=== PATIENT | male | born 1960 | race Caucasian/White ===

== ENCOUNTER 2022-04-12 11:00 | Outpatient (CLI) | payer BC, SELFPAY ==
--- NOTE | 2022-04-19 12:34 | WPDHOLTEREM ---
Holter/Event Monitor Holter/Event Monitor Date of procedure: 04/12/22 Holter/Event Procedure: 48 Hr Holter Monitor Indications: Tachycardia Conclusion: 1. 48 hour holter monitor on 04/12/22. 2. Predominant rhythm is sinus rhythm. HR range 47-150 bpm; average HR 60 bpm. 3. There are 51 premature supraventricular complexes and 1 supraventricular couplet. There are 4 episodes of atrial fibrillation with burden of 0.2%; HR range 85-133 bpm. 4. There are 5 premature ventricular complexes. No ventricular tachycardia. 5. No sinoatrial or atrioventricular blocks. No significant pauses greater than 2 seconds. 6. No symptoms available for correlation.
== END 2022-04-12 11:01 | disposition home or self-care (01) ==
PROVIDERS: PCP Family Medicine; Visit Provider Family Medicine
DX: R00.0 Tachycardia, unspecified (principal)
CPT/HCPCS: 93225; 93226

== ENCOUNTER 2024-11-24 07:47 | Outpatient (CLI) | payer MEDICARE, BC, SELFPAY ==
--- NOTE | 2024-12-16 10:43 | P.SLEEP_ITS ---
Sleep Study Ordering Provider: Laurie Byrnes DO <Debbie Thomas MD - Last Filed: 01/06/25 10:11> Interpreting Physician: Debbie Thomas MD <Debbie Thomas MD - Last Filed: 01/06/25 10:11> Height: 1.8 m <Debbie Thomas MD - Last Filed: 01/06/25 10:11> Weight: 104.326 kg <Debbie Thomas MD - Last Filed: 01/06/25 10:11> Body Mass Index: 32.1 <Lorenza Lucia DO - Last Filed: 12/16/24 17:06> 32.1 <Debbie Thomas MD - Last Filed: 01/06/25 10:11> Neck Circumference (inches): 16 <Debbie Thomas MD - Last Filed: 01/06/25 10:11> [place]: 0 <Debbie Thomas MD - Last Filed: 01/06/25 10:11> PMF Past Medical History Medical History: Medical History Hepatitis C antibody test negative (11/07/19) <Lorenza Lucia DO - Last Filed: 12/16/24 17:06> Surgical History Surgical History: Surgical History H/O removal of cyst (~1980) History of tonsillectomy (~1963) H/O colonoscopy (~2008) <Lorenza Lucia DO - Last Filed: 12/16/24 17:06> Family History Family History: Family History Sibling Family history of obesity Father Hypertension Family history of cardiovascular disease Cerebrovascular accident Family history of malignant neoplasm Family history of lung disease Mother Hypertension Cerebrovascular accident Connective tissue disorder Grandparent Family history of malignant neoplasm <Lorenza Lucia DO - Last Filed: 12/16/24 17:06> Social History Social History: Social History Smoking status: Never smoker Alcohol intake: never Substance use: never Substance use type: does not use Lack of Transportation: No Lack of Food: Never True Current Housing: I Have Housing Concerned About Future Housing: No Difficulty Paying Gas/Electric Bills: No Difficulty Paying for Meds: No Currently Unemployed: No Education: Master's Degree or Higher Difficulty w/ Childcare or Family Care: No <Lorenza Lucia DO - Last Filed: 12/16/24 17:06> Medications Home Medications: Home Medications ?Medication ?Instructions ?Recorded ?Confirmed ?Type amlodipine 10 mg tablet See Rx Instructions .Route 0 05/13/24 11/14/24 Rx .COMPLEX #90 tabs atorvastatin 10 mg tablet See Rx Instructions .Route 0 06/03/24 11/14/24 Rx .COMPLEX #90 tabs losartan 50 mg tablet See Rx Instructions .Route 0 10/30/24 11/14/24 Rx .COMPLEX #180 tabs <Lorenza Lucia DO - Last Filed: 12/16/24 17:06>
[2024-12-16 16:27] VITALS: BMI 32.1
--- NOTE | 2024-12-16 16:27 | P.SLEEP_ITS ---
Sleep Study - Home Unattended Date of Study: 11/24/24 Ordering Provider: Laurie Byrnes DO Interpreting Provider: Lorenza Lucia DO Home Sleep Study Type: Watch PAT Height: 1.8 m Weight: 104.326 kg Body Mass Index: 32.1 Neck Circumference (inches): 16 [place]: 0 Reason for Sleep Study snoring, excessive daytime sleepiness Sleep History The patient is a 63-year-old male that had a sleep study ordered by his primary care physician for evaluation of sleep apnea. The patient admits to snoring loudly and excessive daytime sleepiness. The patient does have interruptions in breathing while asleep. He denies choking or gasping at night. He denies having trouble breathing on her back. He denies morning headaches. He does have a dry or sore mouth / throat in the morning. He denies nocturnal heartburn. He denies nocturia. He denies having trouble falling or staying asleep. He denies having difficulty returning to sleep if he wakes up throughout the night. He denies any hypnotic or sedative use. He denies feeling anxious about sleep. He denies feeling tired or sleepy during the day. He denies feeling tired in the morning. He denies having the urge to fall asleep during the day. He denies feeling drowsy while driving. He denies sleep paralysis, cataplexy and hypnagogic/ hypnopompic hallucinations. He denies clenching or grinding his teeth. He denies kicking or jerking his legs exces sively. He denies having a restless feeling in his legs. He goes to bed at 11:00 p.m. on work days and at 11:45 p.m. on his days off. It takes him 15 minutes to fall asleep he gets 7 hours of sleep on work days and 7 hours and 45 minutes on his days off. His sleep is somewhat restorative on days off. He denies taking any planned naps. He denies dream enactment behavior. He denies sleep walking. [facility]LY [facility] Past Medical History Medical History Hepatitis C antibody test negative (11/07/19) Surgical History Surgical History H/O removal of cyst (~1980) History of tonsillectomy (~1963) H/O colonoscopy (~2008) Family History Family History Sibling Family history of obesity Father Hypertension Family history of cardiovascular disease Cerebrovascular accident Family history of malignant neoplasm Family history of lung disease Mother Hypertension Cerebrovascular accident Connective tissue disorder Grandparent Family history of malignant neoplasm Social History Social History Smoking status: Never smoker Alcohol intake: never Substance use: never Substance use type: does not use Lack of Transportation: No Lack of Food: Never True Current Housing: I Have Housing Concerned About Future Housing: No Difficulty Paying Gas/Electric Bills: No Difficulty Paying for Meds: No Currently Unemployed: No Education: Master's Degree or Higher Difficulty w/ Childcare or Family Care: No Medications Home Medications ?Medication ?Instructions ?Recorded ?Confirmed ?Type amlodipine 10 mg tablet See Rx Instructions .Route 0 05/13/24 11/14/24 Rx .COMPLEX #90 tabs atorvastatin 10 mg tablet See Rx Instructions .Route 0 06/03/24 11/14/24 Rx .COMPLEX #90 tabs losartan 50 mg tablet See Rx Instructions .Route 0 10/30/24 11/14/24 Rx .COMPLEX #180 tabs Sleep Procedure The sleep study was completed using [employer] a technically adequate device with seven channels: peripheral arterial tone, actigraphy, body position, snore, respiratory movement, pulse oximetry, sleep staging, and heart rate. Prior to us ing the device, the patient received verbal and written instructions for its application and was provided with the help desk phone number for additional telephonic instruction with 24-hour availability of qualified personnel to answer questions. The study was scored using CMS guidelines. Sleep Architecture The total recording time is 9 hrs, 14 min. The total sleep time is 8 hrs, 29 min. Sleep latency is 6 minutes. REM latency is 140 minutes. The patient had 9 episodes of waking. Sleep architecture shows 15.9% deep sleep, 70.2% light sleep, and (as % Total Sleep Time) showed NREM (Light 70.2%; Deep 15.9%), and a 13.9% stage REM. The patient spent 47.6% of total sleep time in the supine position. Sleep efficiency was 91.88. Respiratory Analysis The overall AHI (pAHI 4%:) is 5.4. The overall AHI (pAHI 3%:) is 11.3. The central AHI is 1.2. The AHI was 10.8 in NREM and 14.5 in REM sleep. The AHI was 17.2 in Supine and 5.8 in Non-supine sleep. Percent of Balaji Hamlin respirations is 0.0. Oximetry Data The oxygen desaturation index (TONYA 4%:) is 3.6. The mean saturation is 94%, and the lowest saturation is 86%. Time spent with saturation < 88% is 0.1 minutes. Snoring Profile Snoring average intensity is 41 dB. The patient snored above 45 decibels for 29.0 minutes, 5.7% of sleep time. Cardiac Profile The average pulse rate is 51 beats per minutes. The lowest pulse rate is 43 bpm. The highest pulse rate reported is 79 bpm. Atrial fibrillation was not detected. Premature beats occur 0.2 per minute. Assessment and Plan Assessment and Plan (1) RIK (obstructive sleep apnea): Code(s): G47.33 - Obstructive sleep apnea (adult) (pediatric) Status: Acute Assessment and Plan: The patient had an overall AHI of 5.4 with desaturation down to 86%. This is consistent with mild sleep apnea. Due to the patient's hypertension, he qualifies for treatment. I recommend that the patient be prescribed AutoPAP 5-15 cm H2O, CPAP mask/filters/tubing and heated humidity. A mandibular advancement device is also an acceptable treatment option. This should be used with all episodes of sleep.? Compliance should be reviewed within 31-90 days of starting therapy for usage greater than 4 hours per night greater than 70% of the nights. The patient should be asked about symptoms such as?excessive daytime sleepiness, quality of sleep, decreased nocturia, increased?mental functioning such as memory, mood, and concentration. Data The data obtained during this sleep study is adequate for interpretation. Certification This sleep study has been reviewed by a board certified sleep medicine elham cruz
== END 2024-11-25 14:25 | disposition home or self-care (01) ==
LOC: ANHCSM 07:48
PROVIDERS: PCP Family Medicine; Visit Provider Family Medicine
DX: G47.33 Obstructive sleep apnea (adult) (pediatric) (principal); G47.10 Hypersomnia, unspecified
CPT/HCPCS: 95800